=== PATIENT | female | born 1950 | race Caucasian/White ===

== ENCOUNTER 2019-09-16 13:32 | Outpatient (CLI) | payer MEDICARE, MEDICAID, SELFPAY ==
--- NOTE | 2019-09-16 13:40 | CT_ITS ---
WS: [id number] CT ABDOMEN AND PELVIS NONCONTRAST HISTORY: RIGHT FLANK PAIN TECHNIQUE: Imaging performed through the abdomen and pelvis. Coronal and sagittal reformats are submi tted. All CT scans at [facility] use at least one of these dose optimization techniques: automated exposure control; mA and/or kV adjustment per patient size (includes targeted exams where d ose is matched to clinical indication); or iterative reconstruction. DLP: 1135.83 mGycm COMPARISON: 03/21/2006 Lower thorax: Very mild tree-in-bud airspace disease at the lingula and LEFT lower lung. Small hiatal hernia. Liver: Normal, no mass or intrahepatic dilatation. Gallbladder: Unremarkable. Pancreas: Normal. Spleen: Normal. Adrenal glands: Normal. Right kidney: Normal size kidney. Hyperdense nodule measures 5 mm in the anterior mid cortex. May be a small hemorrhagic cyst. No obstruction or mass. Left kidney: Normal size with no stones, mass or atrophy. Abdominal aorta and IVC are unremarkable. No free fluid, intraperitoneal air or significant lymphadenopathy. GI tract: Prior appendectomy. No GI tract obstruction. Abdominal wall: Small fat-containing umbilical hernia. Pelvis: Small atrophic uterus as expected. No pelvic mass. Urinary bladder is only minimally distende d. Osseous structures: Facet joint arthropathy is moderate at L5-S1. Minimal concave deformity superior endplate of L4. Mild LEFT convex curvature of the lumbar spine. CT/CT abdomen pelvis wo con [id number] IMPRESSION: 1. No renal stone or obstruction. 2. Prior appendectomy. 3. Minimal endobronchial pneumonia LEFT lung base and lingula. 4. 5 mm hyperdense nodule anterior RIGHT kidney is probably a hemorrhagic cyst or cyst with increased protein.
--- NOTE | 2019-09-16 13:41 | XR_ITS ---
WS: [id number] DEXA (DUAL ENERGY X-RAY ABSORPTIOMETRY) Bone mineral density was performed using a [employer] machine. HISTORY: ASYMPTOMATIC POSTMENOPAUSAL STATUS COMPARISON: None available. Lumbar spine BMD (L1-L4): 1.093 g/cm2 T score: -0.7 Z score: 0.9 Total hip BMD: Left: 0.932 g/cm2. T score: -0.6 Z score: 0.8 Right: 0.846 g/cm2. T score: -1.3 Z score: 0.2 10 year probability of a major osteoporotic fracture is 12%. XR/XR DEXA axial skeleton* [id number] IMPRESSION: OSTEOPENIA based upon the WHO classification for females.
== END 2019-09-16 13:33 | disposition home or self-care (01) ==
LOC: RADWPI 13:40
PROVIDERS: Family Provider Family Medicine; PCP Family Medicine; Visit Provider Family Medicine
DX: R10.9 Unspecified abdominal pain (principal); Z78.0 Asymptomatic menopausal state; M85.89 Other specified disorders of bone density and structure, multiple sites; J18.8 Other pneumonia, unspecified organism; N28.89 Other specified disorders of kidney and ureter
CPT/HCPCS: 74176; 77080

== ENCOUNTER 2019-10-03 14:12 | Outpatient (CLI) | payer MEDICARE, MEDICAID, SELFPAY ==
--- NOTE | 2019-10-03 | CT_ITS ---
WS: [id number] CT CHEST WITHOUT INTRAVENOUS CONTRAST HISTORY: ABNORMAL LUNG FINDING ON RECENT ABD CT TECHNIQUE: Contiguous 5 mm axial imaging performed on the thorax. Coronal and sagittal reformats are submitted. All CT scans at [facility] use at least one of these dose optimization techniq ues: automated exposure control; mA and/or kV adjustment per patient size (includes targeted exams wh ere dose is matched to clinical indication); or iterative reconstruction. CONTRAST: None DLP: 812.45 mGycm COMPARISON: 09/16/2019 Lungs and central airway: Hyperexpanded lungs with changes of emphysema. Very mild bronchial wall thi ckening at the lingula. No significant change, may be chronic. No pneumonia. There is mild pleural th ickening along the inferior RIGHT major fissure. Pleura: Normal. No pleural effusion. Heart and pericardium: Mild enlargement of the heart chambers. No pericardial effusion. Mediastinum and carol: No mediastinum or hilar adenopathy. Vessels: Normal size aorta and pulmonary artery. Tiny focus of calcium in the LEFT circumflex artery. Chest wall and lower neck: No soft tissue masses. Upper abdomen: No adrenal mass. Visualized liver is normal. Gallbladder is partially contracted which is probably due to a nonfasting state. Osseous structures: No destructive process. CT/CT chest wo con [id number] IMPRESSION: 1. Chronic emphysema. 2. Minimal bronchial wall thickening at the lingula. Could very well be chroni c and not related to acute pneumonia. 3. Mild cardiomegaly.
== END 2019-10-03 14:13 | disposition home or self-care (01) ==
LOC: RADWPI 14:16
PROVIDERS: Family Provider Family Medicine; PCP Family Medicine; Visit Provider Family Medicine
DX: J43.9 Emphysema, unspecified (principal); R91.8 Other nonspecific abnormal finding of lung field; R05 Cough; I51.7 Cardiomegaly
CPT/HCPCS: 71250

== ENCOUNTER 2019-10-20 11:57 | Outpatient (CLI) | payer MEDICARE, MEDICAID, SELFPAY ==
--- NOTE | 2019-10-20 12:00 | MM_ITS ---
WS: [id number] BILATERAL SCREENING DIGITAL MAMMOGRAM WITH CAD HISTORY: RT BREAST ASYMMETRY COMPARISON: 03/31/2019, 09/27/2018, 07/31/2016 and 09/19/2018 Bilateral CC and MLO views submitted. Computer aided detection analyzed. Breast composition: There are scattered areas of fibroglandular density. No suspicious masses, microc alcifications or architectural distortion. Asymmetry in the RIGHT breast at 9:00 is stable with no in crease in size. No significant change since 09/19/2018. MM/[place] [id number] IMPRESSION: BI-RADS: 3-Probably Benign FOLLOW UP: 1 Year Follow-up Recommend 12 month diagnostic imaging of the RIGHT breast asymmetry which has b een stable for several years. Recommend one additional 12 month follow-up.
== END 2019-10-20 11:58 | disposition home or self-care (01) ==
LOC: RADSHAW 11:57
PROVIDERS: Family Provider Family Medicine; PCP Family Medicine; Visit Provider Family Medicine
DX: N64.89 Other specified disorders of breast (principal)
CPT/HCPCS: 77066

== ENCOUNTER 2019-12-18 15:16 | Outpatient (CLI) | payer MEDICARE, MEDICAID, SELFPAY ==
--- NOTE | 2019-12-18 15:28 | XR_ITS ---
WS: [id number] LEFT KNEE: 3 VIEW(S) TECHNIQUE: AP, oblique(s) and lateral. HISTORY: LEFT KNEE PAIN, INJURY COMPARISON: 04/21/2019 No fracture or dislocation. Mild narrowing of the medial compartment and small osteophytes. No joint effusion. No soft tissue abnormality. XR/XR knee LT 3V* [id number] IMPRESSION: Mild osteoarthritis. No fracture.
== END 2019-12-18 15:17 | disposition home or self-care (01) ==
LOC: RADWPI 15:22
PROVIDERS: Family Provider Family Medicine; PCP Family Medicine; Visit Provider Family Medicine
DX: M17.12 Unilateral primary osteoarthritis, left knee (principal)
CPT/HCPCS: 73562

== ENCOUNTER → 2019-12-22 13:59 | Outpatient (BNVA) | payer MEDICARE, MEDICAID, SELFPAY | PROVIDERS: Family Provider Family Medicine; PCP Family Medicine; Visit Provider Obstetrics & Gynecology | DX: N81.10 Cystocele, unspecified (principal); N95.2 Postmenopausal atrophic vaginitis | CPT/HCPCS: 81000 ==

== ENCOUNTER 2020-01-12 08:33 | Day surgery (SDC) | payer MEDICARE, MEDICAID, SELFPAY ==
[2020-01-09 12:21] VITALS: BMI 27.1
[2020-01-12 08:47] VITALS: BP 112/72; PULSE 70; RESP 18; TEMP 36.5; O2SAT 94
--- NOTE | 2020-01-12 08:54 | P.HP_ITS ---
Same Day Surgery H&P Indication for Procedure/HPI DATE OF PROCEDURE: January 12, 2020 CHIEF COMPLAINT/INDICATIONFOR SURGICAL PROCEDURE: Family history of colon cancer in mother. PREOP DIAGNOSIS: c PLANNED PROCEDRUE: Operation Date: 01/12/20 10:15 Proposed Procedures p Colonoscopy G0105 Z80.0(Not Applicable) - Radu Brand MD Medications/Allergies* Home Medications Medication Instructions Recorded Confirmed Type trazodone 50 mg tablet 50 mg PO .AT BEDTIME tab 10/02/19 01/09/20 History cinnamon bark 500 mg capsule 1,000 mg PO DAILY cap 10/06/19 01/09/20 History rosuvastatin 20 mg tablet 20 mg PO DAILY 10/06/19 01/09/20 History lisinopril-hydrochlorothiazide 1 tab PO DAILY 01/09/20 01/09/20 History Allergies/Adverse Reactions Allergy/AdvReac Type Severity Reaction Status Date / Time No Known Allergies Allergy Verified 12/22/19 13:05 Pertinent History/Comorbid Conditions* Medical History (Updated 12/31/19 @ 00:49 by Bong Wagner MD) Arthritis HTN (hypertension), benign Hyperlipidemia Surgical History (Updated 12/09/19 @ 10:55 by Jenny Quiñonez MD) H/O breast biopsy H/O tubal ligation History of appendectomy Family History (Updated 12/22/19 @ 13:09 by Marizol Mendez RN) Colon cancer Mother Hyperlipidemia Mother Hypertension Mother Brother Uterine cancer Family/Other, Onset Age: 67 maternal cousin Denies family history of Diabetes Stroke Social History Smoking and tobacco status: never smoked Alcohol intake: never Lives independently: Yes Household members: none Current occupational status: retired Pertinent Exam Findings alert, oriented x 3, clear to auscultation bilaterally, regular rate & rhythm, operative site marked and procedure specific exam findings Recommendations Surgery/Procedure today Coding Level of Care Code Acute 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
[2020-01-12] MEDS: sodium chloride 0.9% 1,000 ML 30 ML IV (09:03)
--- NOTE | 2020-01-12 09:25 | ANES.PREANE2 ---
Pre-Anesthetic Assessment Pre-Anesthetic Assessment: Height/Weight: Height 1.57 m Weight 67.132 kg Temp Pulse Resp BP Pulse Ox 97.7 F 70 18 112/72 94 01/12/20 08:47 01/12/20 08:47 01/12/20 08:47 01/12/20 08:47 01/12/20 08:47 Preop Diagnosis: family hx colon cancer Proposed Procedure: Operation Date: 01/12/20 10:15 Proposed Procedures p Colonoscopy G0105 Z80.0(Not Applicable) - Radu Brand MD Familial anesthetic complications: colonoscopy Was Beta Katie taken within 24 hours: N/A Last intake: Intake Last Liquid Date 01/11/20 Last Liquid Time 23:30 Last Solid Date 01/10/20 Last Solid Time 05:30 Social: Social History: No alcohol and No tobacco Exam: Pre-Anes Outpt Exam: alert, oriented x 3, clear to auscultation bilaterally and regular rate & rhythm Airway: Cervical ROM: WNL MP: 1 Dentition: Full Pulmonary: Pulmonary: None reported CV/HEM: CV/HEM: HTN : : None reported Hepatic: Hepatic: None reported GI: GI: None reported Metabolic: Metabolic: Hyperlipidemia Musc/skel: Musc/skel: None reported Neuropsych: Neuropsych: None reported Anesthetic Plan: ASA status: 2 Anesthesia: MAC Risk of > 500 ml blood loss (7ml/kg in children): No Meds/Allergies Current Medications: Current Medications Generic Name Dose Route Start Last Admin Trade Name Freq PRN Reason Stop Dose Admin Sodium Chloride 1,000 mls @ 30 ml s/hr 01/12/20 08:45 01/12/20 09:03 Sodium Chloride 0.9% IV 30 mls/hr .Q24H LEATHA Administration PFSH Anesthesia PFSH: Medical History (Updated 12/31/19 @ 00:49 by Bong Wagner MD) Arthritis HTN (hypertension), benign Hyperlipidemia Surgical History H/O breast biopsy H/O tubal ligation History of appendectomy Family History (Updated 12/22/19 @ 13:09 by Marizol Mendez RN) Mother Colon cancer Hyperlipidemia Hypertension Family/Other Uterine cancer, Onset Age: 67 maternal cousin Brother Hypertension Denies family history of Diabetes Stroke Social History (Updated 12/22/19 @ 13:09 by Marizol Mendez RN) Smoking and tobacco status: never smoked Alcohol intake: never Lives independently: Yes Household members: none Current occupational status: retired Data Anesthesia Cardiac Studies: No Data to Display
[2020-01-12 10:11] VITALS: BP 108/62; PULSE 64; RESP 16; TEMP 36.9; O2SAT 94
[2020-01-12 10:26] VITALS: BP 120/75; PULSE 63; RESP 18; O2SAT 96
== END 2020-01-12 10:40 | disposition home or self-care (01) ==
PROVIDERS: PCP Family Medicine; Visit Provider Internal Medicine
PROC: 0DJD8ZZ Inspection of Lower Intestinal Tract, Via Natural or Artificial Opening Endoscopic (ICD-10-PCS; CPT 45378; principal; 2020-01-12 10:15)
DX: Z80.0 Family history of malignant neoplasm of digestive organs (principal); M19.90 Unspecified osteoarthritis, unspecified site; I10 Essential (primary) hypertension; E78.5 Hyperlipidemia, unspecified
CPT/HCPCS: 12345; 45378; G0121; J7030

== ENCOUNTER 2020-11-15 13:47 | Outpatient (CLI) | payer MEDICARE, MEDICAID, SELFPAY ==
--- NOTE | 2020-11-15 13:53 | MM_ITS ---
WS: [id number] BILATERAL DIGITAL SCREENING MAMMOGRAPHY WITH CAD CLINICAL INFORMATION: SCREENING HISTORY: Screening mammogram. No current complaints. COMPARISON: October 20, 2019 TECHNIQUE: Bilateral CC and MLO views. FINDINGS: Scattered fibroglandular densities bilaterally. Benign punctate calcifications. No suspicious focal m ass, asymmetry, calcifications, or architectural distortion. No evidence of malignancy. MM/[place] [id number] IMPRESSION: BI-RADS: 2-Benign FOLLOW UP: 1 Year Follow-up Recommend return to annual screening mammography.
== END 2020-11-15 13:48 | disposition home or self-care (01) ==
LOC: RADSHAW 13:51
PROVIDERS: PCP Internal Medicine; Visit Provider Internal Medicine
DX: Z12.31 Encounter for screening mammogram for malignant neoplasm of breast (principal)
CPT/HCPCS: 77067

== ENCOUNTER 2022-01-12 13:39 | Outpatient (CLI) | payer MEDICARE, MEDICAID, SELFPAY ==
--- NOTE | 2022-01-12 13:48 | MM_ITS ---
WS: [id number] BILATERAL 3D TOMOSYNTHESIS DIGITAL SCREENING MAMMOGRAPHY WITH CAD CLINICAL INFORMATION: SCREENING HISTORY: Screening mammogram. No current complaints. COMPARISON: November 16, 2019 TECHNIQUE: Bilateral CC and MLO views. FINDINGS: Scattered fibroglandular densities bilaterally. A few incidental punctate calcifications. No suspicio us focal mass, asymmetry, calcifications, or architectural distortion. No evidence of malignancy. MM/[place] [id number] IMPRESSION: BI-RADS: 2-Benign FOLLOW UP: 1 Year Follow-up Recommend return to annual screening mammography.
== END 2022-01-12 13:40 | disposition home or self-care (01) ==
LOC: RAD 13:43
PROVIDERS: PCP Internal Medicine; Visit Provider Family Medicine
DX: Z12.31 Encounter for screening mammogram for malignant neoplasm of breast (principal)
CPT/HCPCS: 77063; 77067

== ENCOUNTER 2022-11-20 13:58 | Outpatient (CLI) | payer MEDICARE, MEDICAID, SELFPAY ==
--- NOTE | 2022-11-20 14:20 | XR_ITS ---
WS: [id number] EXAMINATION: XR knee LT 3V* [id number] REASON FOR EXAM: LEFT KNEE OSTEOARTHRITIS COMPARISON: 12/18/2019 ORDER DATE: 11/20/2022 2:25 PM FINDINGS: There are marginal osteophytes associated with the tibial spines, patella and other articular margins with medial and patellofemoral compartment narrowing. There is no sign of any acute fracture or disl ocation. A small joint effusion cannot be excluded but there is no evidence of any large effusion XR/XR knee LT 3V* [id number] IMPRESSION: MEDIAL AND PATELLOFEMORAL COMPARTMENT NARROWING WITH OSTEOARTHRITIC CHANGES.
--- NOTE | 2022-11-20 14:20 | XR_ITS ---
WS: [id number] EXAMINATION: XR lumbar spine 6V w f/e [id number] L-SPINE : 6 views REASON FOR EXAM: L LEG PAIN COMPARISON: None available. ORDER DATE: 11/20/2022 2:25 PM FINDINGS: The lumbar vertebral bodies and the disc spaces are normal in width. In the lumbar vertebra, there i s no evidence of compression deformities or spondylolisthesis. There is a very small levoscoliosis of 3 to 4 degrees in the mid lumbar region.Lateral view shows anterior subluxation of L4 on L5 by 2.4 m m secondary to facet joint narrowing. Vertebral body heights are maintained. Disc space narrowing and osteophytes at L1-L2 and L3-L4. Additional facet joint narrowing at L2-L3, L3-L4 and L5-S1. XR/XR lumbar spine 6V w f/e [id number] IMPRESSION: 1. Mild levoscoliosis. 2. Mild degenerative anterior subluxation of L4 on L5 secondary to facet joint osteoarthritic changes. Additional facet joint osteoarthritis at L2-L3, L3-L4 and L5-S1. 3. Mild spondylosis at L1-L2 and L3-L4.
== END 2022-11-20 13:59 | disposition home or self-care (01) ==
PROVIDERS: PCP Internal Medicine; Visit Provider Family Medicine
DX: M79.605 Pain in left leg (principal); M17.12 Unilateral primary osteoarthritis, left knee; M47.817 Spondylosis without myelopathy or radiculopathy, lumbosacral region
CPT/HCPCS: 72114; 73562

== ENCOUNTER → 2022-12-14 13:28 | Outpatient (BNVA) | payer MEDICARE, MEDICAID, SELFPAY | PROVIDERS: PCP Internal Medicine; Referring Provider Family Medicine; Visit Provider Orthopaedic Surgery | DX: M48.062 Spinal stenosis, lumbar region with neurogenic claudication (principal) | CPT/HCPCS: 72110; 99204 ==

== ENCOUNTER 2023-01-02 14:58 | Outpatient (CLI) | payer MEDICARE, MEDICAID, SELFPAY ==
--- NOTE | 2023-01-02 15:15 | MR_ITS ---
WS: [id number] MRI LUMBAR SPINE NONCONTRAST HISTORY: low back pain with radiculopathy, LEFT leg pain. COMPARISON: 03/17/2019 TECHNIQUE: Sagittal and axial multisequence imaging is submitted. L3 retrolisthesis by 2 mm. Moderate disc space narrowing and desiccation at L3-4. No acute fractures or marrow edema. Remaining disc spaces are normal. Conus terminates normally at L1. L1-L2: No stenosis. Mild disc bulging. L2-L3: Normal. L3-L4: Mild osteophytic ridging with mild ligamentum flavum and facet arthropathy. There is mild narr owing of the subarticular recesses greatest on the RIGHT. Mild RIGHT foraminal and subarticular reces s stenosis. L4-L5: Mild annular disc bulging with ligamentum flavum and facet arthritis. Mild subarticular recess narrowing and encroachment. Very mild central and bilateral subarticular recess narrowing. L5-S1: Normal. Paravertebral soft tissues are normal. MR/MR lumbar spine wo con* [id number] IMPRESSION: 1. No significant stenosis. 2. Mild bilateral subarticular recess stenosis at L3-4 greatest on the RIGHT. 3. Mild central and bilateral subarticular recess stenosis at L4-5. 4. Degenerative disc space narrowing and desiccation has progressed at L3-4 si nce 2019. 5. Mild RIGHT foraminal stenosis at L3-4.
== END 2023-01-02 14:59 | disposition home or self-care (01) ==
LOC: RAD 15:03
PROVIDERS: PCP Family Medicine; Visit Provider Orthopaedic Surgery
DX: M54.9 Dorsalgia, unspecified (principal); M47.816 Spondylosis without myelopathy or radiculopathy, lumbar region
CPT/HCPCS: 72148

== ENCOUNTER → 2023-01-16 14:31 | Outpatient (BNVA) | payer MEDICARE, MEDICAID, SELFPAY | PROVIDERS: PCP Family Medicine; Visit Provider Orthopaedic Surgery | DX: Z09 Encounter for follow-up examination after completed treatment for conditions other than malignant neoplasm (principal); M48.062 Spinal stenosis, lumbar region with neurogenic claudication | CPT/HCPCS: 99213 ==

== ENCOUNTER → 2023-02-22 10:18 | Outpatient (BNVA) | payer MEDICARE, MEDICAID, SELFPAY | PROVIDERS: PCP Family Medicine; Visit Provider Anesthesiology Pain Medicine | DX: M48.062 Spinal stenosis, lumbar region with neurogenic claudication (principal); M47.816 Spondylosis without myelopathy or radiculopathy, lumbar region; M17.12 Unilateral primary osteoarthritis, left knee | CPT/HCPCS: 99205 ==

== ENCOUNTER 2023-02-27 14:56 | Outpatient (CLI) | payer MEDICARE, MEDICAID, SELFPAY ==
--- NOTE | 2023-02-27 15:15 | MR_ITS ---
WS: [id number] MRI LEFT KNEE NONCONTRAST TECHNIQUE: Axial PD, coronal PD fat sat, coronal PD, sagittal PD, and sagittal PD fat-sat images obta ined. CLINICAL INFORMATION: M25.562 - Pain in left knee COMPARISON: MRI 2019 FINDINGS: Distal quadriceps and patella tendons are intact. Moderate suprapatellar effusion. Diffuse abnormal s ignal involving the ACL with mucoid degeneration. This is new since 2019. A few normal fibers are vis ualized. Recommend correlation with ACL injury. Normal PCL. Moderate to advanced tricompartmental art hritis with hypertrophic changes along the joint line. 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 Moderate chond romalacia patella. Medial and lateral collateral ligaments appear intact. Normal lateral meniscus. Chronic thinning of the medial meniscus with peripheral extrusion. Chronic a ppearing tear involving the medial meniscus at the meniscal root with blunting of the anterior and po sterior horns. MR/MR knee LT wo con* [id number] IMPRESSION: 1. Diffuse abnormal signal involving the ACL is new since 2018 with Mucoid deg eneration. A few normal intact fibers visualized.Correlation for ACL injury and partial ACL tear. 2. Normal PCL. 3. Moderate joint effusion. 4. Progressed thinning of the medial meniscus with chronic appearing tear reginald g the meniscal root. 5. 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 Outbridge grading: grade III: partial-thickness cartilage loss with focal ulcer ation
== END 2023-02-27 14:57 | disposition home or self-care (01) ==
PROVIDERS: PCP Family Medicine; Visit Provider Anesthesiology Pain Medicine
DX: M25.462 Effusion, left knee (principal); R93.6 Abnormal findings on diagnostic imaging of limbs; M22.42 Chondromalacia patellae, left knee; S83.242A Other tear of medial meniscus, current injury, left knee, initial encounter; X58.XXXA Exposure to other specified factors, initial encounter
CPT/HCPCS: 73721

== ENCOUNTER → 2023-03-27 11:14 | Outpatient (BNVA) | payer MEDICARE, MEDICAID, SELFPAY | PROVIDERS: PCP Family Medicine; Visit Provider Anesthesiology Pain Medicine | DX: M48.062 Spinal stenosis, lumbar region with neurogenic claudication (principal); M47.816 Spondylosis without myelopathy or radiculopathy, lumbar region; M17.12 Unilateral primary osteoarthritis, left knee | CPT/HCPCS: 99214 ==

== ENCOUNTER 2024-07-04 13:21 | Outpatient (CLI) | payer MEDICARE, MEDICAID, SELFPAY ==
--- NOTE | 2024-07-04 13:23 | MM_ITS ---
WS: [id number] BILATERAL 3D TOMOSYNTHESIS DIGITAL SCREENING MAMMOGRAPHY WITH CAD CLINICAL INFORMATION: SCREENING HISTORY: Screening mammogram. No current complaints. COMPARISON: 2021 TECHNIQUE: Bilateral CC and MLO views. FINDINGS: Scattered fibroglandular densities bilaterally. No suspicious focal mass, asymmetry, calcifications, or architectural distortion. No evidence of malignancy. Incidental punctate calcifications. MM/MM [facility] tomosynthesis [id number] IMPRESSION: DENSITY: There are scattered areas of fibroglandular density. BI-RADS: 2 - Benign. FOLLOW UP: 1 Year Follow-up Recommend return to annual screening mammography.
== END 2024-07-04 13:22 | disposition home or self-care (01) ==
LOC: RAD 13:22
PROVIDERS: PCP Family Medicine; Visit Provider Family Medicine
DX: Z12.31 Encounter for screening mammogram for malignant neoplasm of breast (principal); R92.323 Mammographic fibroglandular density, bilateral breasts; R92.1 Mammographic calcification found on diagnostic imaging of breast
CPT/HCPCS: 77063; 77067

== ENCOUNTER 2024-12-30 14:42 | Outpatient (CLI) | payer OTHER, MEDICAID, SELFPAY ==
--- NOTE | 2024-12-30 14:45 | XR_ITS ---
WS: [id number] SCREENING DEXA SCAN [employer] CLINICAL INFORMATION: ASYMPTOMATIC POSTMENOPAUSAL STATUS COMPARISON: 2019 FINDINGS: The L1-L4 bone mineral density measures 1.127 g/cm2. This corresponds to a T score score of -0.4 and Z score of 1.2. Left femoral neck bone mineral density measures 0.874 g/cm2. This corresponds to a T score of -1.1 and Z score of 0.6. Right femoral neck bone mineral density measures 0.860 g/cm2. This corresponds to a T score -1.2of and Z score of 0.5. Mean femoral neck bone mineral density measures 0.867 g/cm2. This corresponds to a T score of -1.1 and Z score of 0.5. XR/XR DEXA axial skeleton* [id number] IMPRESSION: Normal bone mineralization lumbar spine. Osteopenia femoral necks. Patient's FRAX calculated 10 year probability for major osteoporotic fracture i s 12.7% and osteoporotic hip fracture is 3.1%. Bone mineral density lumbar spine increased 3.1% Bone mineral density femoral necks decreased -2.5%
== END 2024-12-30 14:43 | disposition home or self-care (01) ==
LOC: RAD 14:44
PROVIDERS: PCP Family Medicine; Visit Provider Family Medicine
DX: Z78.0 Asymptomatic menopausal state (principal); M85.88 Other specified disorders of bone density and structure, other site
CPT/HCPCS: 77080

== ENCOUNTER → 2024-12-31 11:45 | Outpatient (BNVA) | payer OTHER, MEDICAID, SELFPAY | PROVIDERS: PCP Family Medicine; Referring Provider Family Medicine; Visit Provider Surgery | DX: Z12.11 Encounter for screening for malignant neoplasm of colon (principal) | CPT/HCPCS: 99024; 99203 ==

== ENCOUNTER 2025-02-04 07:47 | Day surgery (SDC) | payer OTHER, MEDICAID, SELFPAY ==
[2025-02-04 08:00] VITALS: BP 138/70; PULSE 78; RESP 16; TEMP 36.3; O2SAT 94; BMI 26.5
[2025-02-04] MEDS: sodium chloride 0.9% 1,000 ML 15 ML IV (08:05)
--- NOTE | 2025-02-04 08:10 | W.PM.OPSFHP ---
Same Day Surgery H&P Indication for Procedure/HPI DATE OF PROCEDURE: February 04, 2025 CHIEF COMPLAINT/INDICATIONFOR SURGICAL PROCEDURE: need for screening colonoscopy PREOP DIAGNOSIS: need for screening colonoscopy PLANNED PROCEDURE: Operation Date: 02/04/25 09:40 Proposed Procedures p Colonoscopy 85143 G0105 Z12.11(Not Applicable) - Luis Valdez MD Medications/Allergies* Home Medications ?Medication ?Instructions ?Recorded ?Confirmed ?Type rosuvastatin 20 mg tablet (Crestor) 20 mg PO DAILY 10/06/19 02/02/25 History lisinopril 20 1 tab PO DAILY 01/09/20 02/02/25 History mg-hydrochlorothiazide 12.5 mg tablet temazepam 15 mg capsule 15 mg PO DAILY 12/31/24 02/02/25 History Allergies/Adverse Reactions Allergy/AdvReac Type Severity Reaction Status Date / Time No Known Allergies Allergy Verified 02/04/25 07:58 Current Medications: Generic Name Dose Route Start Last Admin Trade Name Freq PRN Reason Stop Dose Admin Sodium Chloride 1,000 mls @ 15 mls/hr 02/04/25 08:02 02/04/25 08:05 Sodium Chloride 0.9% IV 02/05/25 08:01 15 mls/hr .Q24H PRN Administration COLONOSCOPY FLUIDS Pertinent History/Comorbid Conditions* Medical History (Updated 02/22/23 @ 13:20 by Josh Mclain MD) HTN (hypertension), benign Hyperlipidemia Arthritis Surgical History (Updated 12/09/19 @ 10:55 by Jenny Quiñonez MD) History of appendectomy H/O breast biopsy H/O tubal ligation Family History (Updated 12/22/19 @ 13:09 by Marizol Mendez RN) Colon cancer Mother Hyperlipidemia Mother Hypertension Mother Brother Uterine cancer Family/Other, Onset Age: 67 maternal cousin Denies family history of Diabetes Stroke Social History Smoking and tobacco/nicotine status: tobacco/nicotine user, details unknown Alcohol intake: never Substance/Drug Use: never Lives independently: Yes Household members: none Current occupational status: retired Do you think of yourself as: Straight/Heterosexual Pertinent Exam Findings alert, oriented x 3 and clear to auscultation bilaterally Recommendations Surgery/Procedure today Coding Level of Care Code Acute Code for Chg Fwd
--- NOTE | 2025-02-04 08:56 | ANES.PREANE2 ---
Pre-Anesthetic Assessment Height/Weight: Height 1.57 m Weight 65.771 kg Temp Pulse Resp BP Pulse Ox O2 Del Method 97.4 F L 78 16 138/70 94 Room Air 02/04/25 08:00 02/04/25 08:00 02/04/25 08:00 02/04/25 08:00 02/04/25 08:00 02/04/25 08:00 Preop Diagnosis: need for screening colonoscopy Operation Date: 02/04/25 09:40 Proposed Procedures p Colonoscopy 96358 G0105 Z12.11(Not Applicable) - Luis Valdez MD Was Beta Katie taken within 24 hours: Yes Last intake: Intake Last Liquid Date 02/03/25 Last Liquid Time 23:00 Last Solid Date 02/02/25 Last Solid Time 22:30 Social No alcohol and No tobacco Exam alert, oriented x 3, clear to auscultation bilaterally and regular rate & rhythm Airway Submandibular: within normal limits Cervical ROM: within normal limits Mallampati: Class II Dentition: full History/ROS No significant history except as noted and No significant complaints Pulmonary None reported CV/HEM Hypertension None reported Hepatic None reported GI None reported Metabolic None reported Musc/skel Osteoarthritis/DJD Neuropsych None reported Anesthetic Plan ASA status: 2 Anesthesia: Anesthesia Evaluation and MAC Risk of > 500 ml blood loss (7ml/kg in children): No Medications/Allergies Home Medications ?Medication ?Instructions ?Recorded ?Confirmed ?Last Taken ?Type rosuvastatin 20 mg tablet (Crestor) 20 mg PO DAILY 10/06/19 02/02/25 02/03/25 History lisinopril 20 1 tab PO DAILY 01/09/20 02/02/25 02/03/25 History mg-hydrochlorothiazide 12.5 mg tablet temazepam 15 mg capsule 15 mg PO DAILY 12/31/24 02/02/25 02/03/25 History ondansetron 8 mg disintegrating 8 mg PO Q8H PRN nausea and 02/02/25 02/03/25 02/03/25 Rx tablet vomiting #3 tabs Allergies Allergy/AdvReac Type Severity Reaction Status Date / Time No Known Allergies Allergy Verified 02/04/25 07:58 Current Medications Generic Name Dose Route Start Last Admin Trade Name Freq PRN Reason Stop Dose Admin Sodium Chloride 1,000 mls @ 15 mls/hr 02/04/25 08:02 06/25/25 08:05 Sodium Chloride 0.9% IV 02/05/25 08:01 15 mls/hr .Q24H PRN Administration COLONOSCOPY FLUIDS PFSH Anesthesia Medical History HTN (hypertension), benign Hyperlipidemia Arthritis Surgical History History of appendectomy H/O breast biopsy H/O tubal ligation Family History Mother Colon cancer Hyperlipidemia Hypertension Family/Other Uterine cancer, Onset Age: 67 maternal cousin Brother Hypertension Denies family history of Diabetes Stroke Social History Smoking and tobacco/nicotine status: tobacco/nicotine user, details unknown Alcohol intake: never Substance/Drug Use: never Lives independently: Yes Household members: none Current occupational status: retired Do you think of yourself as: Straight/Heterosexual
[2025-02-04 09:45] VITALS: BP 98/52; PULSE 62; RESP 20; TEMP 36.1; O2SAT 98
[2025-02-04 10:00] VITALS: BP 109/53; PULSE 59; RESP 18; O2SAT 99
--- NOTE | 2025-02-04 10:15 | ANE.PACU2 ---
Inpatient post-anesthesia follow up: Airway intact: Yes Vital signs: Temperature 97.0 F Pulse Rate 59 Respiratory Rate 18 Blood Pressure 109/53 Pulse Oximetry 99 Oxygen Delivery Me thod Room Air Oxygen Flow Rate 3 Fraction of Inspir ed Oxygen Hydration adequate: Yes Nausea and vomiting: No Pain level: 1 Mental status: Baseline
== END 2025-02-04 10:18 | disposition home or self-care (01) ==
PROVIDERS: PCP Family Medicine; Visit Provider Surgery
PROC: 0DJD8ZZ Inspection of Lower Intestinal Tract, Via Natural or Artificial Opening Endoscopic (ICD-10-PCS; CPT 45378; principal; 2025-02-04 09:40)
DX: Z12.11 Encounter for screening for malignant neoplasm of colon (principal); E78.5 Hyperlipidemia, unspecified; I10 Essential (primary) hypertension; Z79.899 Other long term (current) drug therapy; Z80.0 Family history of malignant neoplasm of digestive organs
CPT/HCPCS: 45378; J2704; J7030